=== PATIENT | female | born 2000 | race Caucasian/White ===

== ENCOUNTER 2024-02-19 11:21 | Emergency (ER) | payer MEDICAID ==
[~2024-02-19] VITALS: Ht 149.9 cm; Wt 50.9 kg
[2024-02-19 11:32] VITALS: TEMP 98.3
[2024-02-19] MEDS ORDERED: NS 1,000 ML IV ONE (12:45)
[2024-02-19 13:27] LABS: PH 6.5 (5.0-8.5); URINE APPEARANCE CLOUDY (CLEAR/HAZY); URINE BLOOD NEGATIVE (NEGATIVE); URINE COLOR YELLOW (YELLOW); URINE GLUCOSE NEGATIVE (NEGATIVE); URINE KETONE 1+ (NEGATIVE); URINE NITRATE NEGATIVE (NEGATIVE); URINE PROTEIN(semi-quant) TRACE (NEGATIVE); URINE UROBILINOGEN 0.2 E.U/dL (0.2-1.0)
[2024-02-19 13:36] LABS: BASO # 0.1 K/mm3 (0.0-0.2); BASO % 0.8 % (0.0-2.0); EOS % 0.5 % (0.0-4.0); GRAN # 3.6 K/mm3 (1.4-6.5); GRAN % 56.1 % (42.2-75.2); HEMATOCRIT 44.2 % (37.0-47.0); HEMOGLOBIN 14.3 g/dl (12.5-16.0); LYMPH # 1.9 K/mm3 (1.2-3.4); LYMPH % 29.9 % (20.0-51.0); MEAN CELL VOLUME 87 fl (80.0-100.0); MEAN CORPUSCULAR HEMOGLOBIN 28 pg (27-31); MEAN CORPUSCULAR HGB CONC 32 g/dl (33.0-37.0); MEAN PLATELET VOLUME 9.7 fl (7.4-10.4); MONO # 0.8 K/mm3 (0.1-0.6); MONO % 12.4 % (1.7-9.3); PLATELET COUNT 250 K/mm3 (130-400); RED BLOOD COUNT 5.07 M/mm3 (4.10-5.30); REDCELL DISTRIBUTION WIDTH-CV 12.9 % (11.5-14.5)
[2024-02-19 13:37] LABS: CALCIUM 9.9 mg/dL (8.4-10.2); CREATININE, serum 0.7 mg/dL (0.57-1.11); POTASSIUM 3.6 mEq/L (3.5-4.5)
[2024-02-19 14:07] LABS: URINE RBC NONE SEEN /hpf (0-2)
[2024-02-19 14:08] LABS: MUCOUS PRESENT (NOT PRESENT); URINE BACTERIA RARE /hpf (NONE SEEN)
[2024-02-19 14:30] LABS: COLLECTION METHOD CLEAN CATCH
[2024-02-19] MEDS ORDERED: PROMETHAZINE12.5 M5 PO (14:58)
[2024-02-19 15:14] VITALS: BP 108/70; PULSE 79
== END 2024-02-19 15:16 | disposition home or self-care (01) ==
LOC: COL.ER 11:21
PROVIDERS: Physician Assistant
DX: O21.0 Mild hyperemesis gravidarum (principal); Z3A.01 Less than 8 weeks gestation of pregnancy
CPT/HCPCS: J2765; J7030

== ENCOUNTER 2024-08-27 18:57 | Outpatient (CLI) | payer MEDICAID ==
[~2024-08-27] VITALS: Ht 149.9 cm; Wt 61.4 kg
[~2024-08-27 18:57] MED LIST: COLACE 100100 MG/CAP PO; MIRALAX119G PO; PROMETHAZINE12.5 M5 PO; QUALITY CHOICE1 TA7 PO; UNISOM25 MG PO; ZOLOFT 100MG100 MG PO
--- NOTE | 2024-08-27 19:00 | NUR ---
1900 G2L1 33.4 WEEK GEST TO LR5 WITH C/O CONTRACTIONS SINCE 1000 THIS AM. NOT SURE HOW FAR APART THEY ARE RIGHT NOW BUT MAYBE 5 IN ONE HOUR. STATES FEELS MORE TIGHTENING AND SOME CRAMPING. HAS ALSO LOST MUCOUS PLUG. EFM ON. SVE 0-12/19/HIGH. WAS HERE 24 HOURS AGO AND NO CHANGE IN CERVICAL EXAM SINCE THEN. ADM ASSESSMENT COMPLETED.
[2024-08-27 19:15] VITALS: BP 126/85; PULSE 111; TEMP 98.3
[2024-08-27] MEDS ORDERED: LR 1,000 ML IV PRN (19:15)
[2024-08-27 20:00] VITALS: BP 112/77; PULSE 81
--- NOTE | 2024-08-27 20:00 | NUR ---
2000 STATES IS FEELING JUST SOME TIGHTENING AT THIS TIME. NO C/O CONTRACTIONS. DR POTTER NOTIFIED AND ORDERS TO DISMISS RECIEVED. 2010 HOME WITH INSTRUCTIONS.
== END 2024-08-27 20:10 | disposition home or self-care (01) ==
LOC: LDR 18:57 → LDRO 18:57 → LDR 18:58 → LDRO 20:10
DX: O47.03 False labor before 37 completed weeks of gestation, third trimester (principal); O26.893 Other specified pregnancy related conditions, third trimester; Z3A.33 33 weeks gestation of pregnancy
CPT/HCPCS: OP

== ENCOUNTER 2024-09-22 17:31 | Outpatient (CLI) | payer MEDICAID ==
[~2024-09-22] VITALS: Ht 149.9 cm; Wt 64.1 kg
--- NOTE | 2024-09-22 17:35 | NUR ---
PATIENT AMBULATES ON TO UNIT AND TO LABOR ROOM. PATIENT DENIES LEAKING OF FLUID OR BLEEDING. PATIENT REPORTS NORMAL MOVEMENT. PATIENT REPORTS THAT SINCE HER APPOINTMENT TODAY HER CONTRACTIONS HAVE PICKED UP IN FRQUENCY AND INTENSITY. SHE RATES THEM A 5 TO 6 ON A SCALE OF 1-10. EFM AND TOCO INITAITED. SPO2 INITAITED.
[2024-09-22] MEDS ORDERED: LR 1,000 ML IV PRN (17:45)
[2024-09-22 18:00] VITALS: BP 125/82; PULSE 100; TEMP 97.7
[2024-09-22 18:25] VITALS: BP 114/74; PULSE 99; TEMP 97.8
--- NOTE | 2024-09-22 18:25 | NUR ---
After speaking with patient, patient denies contractions are any worse or more frequent. While whincing with this contract writer in room, no contraction palpable. Patient verbalizes she cannot tell if she is having contractions or experiencing gas pain. When asked what patient eats on daily basis, states, "Not much. I ate eggs and sausage today." Discussed importance of small frequent meals, adding in fiber; used examples sweet potatoes, green beans, greens, cabbage, and encouraged frequent ambulation and adequate water intake. Verbalizes understanding. This contract writer offers repeat SVE, patient declines. Discussed discharge plan, keeping next scheduled office visit and reasons to return or call. Verbalizes understanding.
--- NOTE | 2024-09-22 18:33 | NUR ---
Ambulatory off of unit, accompanied by spouse. Reassured she is almost to her due date, to hang in there.
== END 2024-09-22 18:33 | disposition home or self-care (01) ==
LOC: LDRO 17:31
DX: O47.9 False labor, unspecified (principal); Z3A.00 Weeks of gestation of pregnancy not specified